=== PATIENT | female | born 1995 | race Caucasian/White ===

== ENCOUNTER 2021-02-23 09:48 | Emergency (ER) | payer OTHER ==
[2021-02-23 10:09] VITALS: RESP 18
[2021-02-23] MEDS ORDERED: IBUPROFEN 600 MG TAB PO STA (13:35)
[2021-02-23] MEDS ORDERED: CIPROFLOXACIN-DEXAMETH 0.3-0.1% DROPS 7.5 ML BTL RIGHT EAR STA (13:35)
--- NOTE | 2021-02-23 13:49 | ED ---
ENT HPI - General Chief complaint: ENT Stated complaint: Ear pain Time Seen by Provider: 02/23/21 13:21 Source: patient, family, RN notes reviewed Mode of arrival: ambulatory Limitations: no limitations - History of Present Illness Initial comments: 45-year-old female presents emergency Department chief complaint of ear pain. Patient states his been bothersome for 1 week. Patient states her small drainage. Patient with a low-grade temp, ear pain no cough or cold like symptoms no other complaints. - Related Data Previous Rx's Medication Instructions Recorded Amoxicillin/Potassium Clav 1 tab PO Q12HR #20 tab 02/23/21 [Augmentin 875-125 Tablet] Allergies Allergy/AdvReac Type Severity Reaction Status Date / Time lidocaine Allergy Dyspnea Verified 02/23/21 10:09 Review of Systems ROS Statement: Those systems with pertinent positive or pertinent negative responses have been documented in the HPI. ROS Other: All systems not noted in ROS Statement are negative. Past Medical History Past Medical History: No Reported History History of Any Multi-Drug Resistant Organisms: None Reported Past Surgical History: Section Past Psychological History: No Psychological Hx Reported Smoking Status: Current every day smoker Past Alcohol Use History: None Reported Past Drug Use History: None Reported General Exam Limitations: no limitations General appearance: alert, in no apparent distress Head exam: Present: atraumatic, normocephalic, normal inspection Eye exam: Present: normal appearance, PERRL, EOMI. Absent: scleral icterus, conjunctival injection, periorbital swelling ENT exam: Present: normal oropharynx, mucous membranes moist. Absent: normal ex am, TM's normal bilaterally, normal external ear exam (Swollen with exudates right) Neck exam: Present: normal inspection. Absent: tenderness, meningismus, lymphadenopathy Respiratory exam: Present: normal lung sounds bilaterally. Absent: respiratory distress, wheezes, rales, rhonchi, stridor Cardiovascular Exam: Present: regular rate, normal rhythm, normal heart sounds. Absent: systolic murmur, diastolic murmur, rubs, gallop, clicks Course Vital Signs 02/23/21 10:06 Temperature 99.4 F Pulse Rate 115 H Respiratory 18 Rate Blood Pressure 129/81 O2 Sat by Pulse 97 Oximetry Medical Decision Making - Medical Decision Making Patient has otitis externa cannot visualize TM. Patient started on eardrops, oral and Imitrex return parameters were discussed. Disposition Clinical Impression: Otitis externa Disposition: HOME SELF-CARE Condition: Stable Instructions (If sedation given, give patient instructions): Earache (ED) Additional Instructions: Ciprodex eardrops 4 drops twice daily for 7 days Please return to the Emergency Department if symptoms worsen or any other concerns. Prescriptions: Amoxicillin/Potassium Clav [Augmentin 875-125 Tablet] 1 tab PO Q12HR #20 tab Is patient prescribed a controlled substance at d/c from ED?: No Referrals: Nonstaff,Physician [Primary Care Provider] - 1-2 days Time of Disposition: 13:51
[2021-02-23 14:39] VITALS: BP 122/76; PULSE 112; TEMP 99.2
== END 2021-02-23 14:38 | disposition home or self-care (01) ==
LOC: EC 09:48
DX: H60.91 Unspecified otitis externa, right ear (principal); F17.200 Nicotine dependence, unspecified, uncomplicated
CPT/HCPCS: 99283

== ENCOUNTER 2021-04-22 22:21 | Emergency (ER) | payer OTHER ==
--- NOTE | 2021-04-22 22:59 | ED ---
Chest Pain HPI - General Chief Complaint: Chest Pain Stated Complaint: Chest Pain,Fever Time Seen by Provider: 04/22/21 22:36 Source: patient Mode of arrival: ambulatory Limitations: no limitations - History of Present Illness Initial Comments: 's patient is 25-year-old woman, approximately 10 weeks , who presents to be evaluated for constellation of symptoms that includes chills, lightheadedness, fever, mild cough, and pounding chest. She states she was in her usual state of health until proximally 4 PM when she noticed she was feeling chilled and then became lightheaded followed by the other symptoms. She checked her primary care was 100.9 so she felt she should be evaluated here. Complaint: other Onset/Timin -: hour(s) Onset: during rest Pain Location: substernal Pain Radiation: none Severity: mild Quality: other (Pounding) Consistency: now resolved Improves With: nothing Worsens With: nothing Other Symptoms: fever Treatments Prior to Arrival: none - Related Data Home Medications Medication Instructions Recorded Confirmed Pnv,Calcium 72/Iron/Folic Acid 1 tab PO DAILY 04/22/21 04/22/21 [ Plus Tablet] Allergies Allergy/AdvReac Type Severity Reaction Status Date / Time lidocaine Allergy Dyspnea Verified 04/22/21 23:03 Review of Systems ROS Statement: Those systems with pertinent positive or pertinent negative responses have been documented in the HPI. ROS Other: All systems not noted in ROS Statement are negative. Constitutional: Reports: fever, chills, weakness Respiratory: Reports: cough. Denies: wheezes, hemoptysis Cardiovascular: Reports: palpitations. Denies: orthopnea, edema, syncope Gastrointestinal: Denies: abdominal pain, vomiting, diarrhea Genitourinary: Denies: dysuria, hematuria Musculoskeletal: Denies: back pain Skin: Denies: rash Neurological: Denies: headache, weakness, numbness EKG Findings - EKG Results: EKG: interpreted by ERMSergei, sinus rhythm EKG shows: tachycardia (Rate 1:30 bpm) - Blocks, [place], Hypertrophy, ST Abn: AV and intraventricular conduction: right bundle branch block (fixed/intermittent, complete/incomplete) (Incomplete) Past Medical History Past Medical History: No Reported History Additional Past Medical History / Comment(s): Pre Clampsia. History of Any Multi-Drug Resistant Organisms: None Reported Past Surgical History: Section Past Psychological History: No Psychological Hx Reported Smoking Status: Current every day smoker Past Alcohol Use History: None Reported Past Drug Use History: None Reported General Exam Limitations: no limitations General appearance: alert, in no apparent distress Head exam: Present: atraumatic, normocephalic Eye exam: Present: normal appearance. Absent: scleral icterus, conjunctival injection ENT exam: Present: normal oropharynx Neck exam: Present: normal inspection Respiratory exam: Present: normal lung sounds bilaterally. Absent: respiratory distress, wheezes, rales, rhonchi, stridor Cardiovascular Exam: Present: normal rhythm, tachycardia, normal heart sounds. Absent: systolic murmur, diastolic murmur, rubs, gallop GI/Abdominal exam: Present: soft. Absent: distended, tenderness, guarding, rebound, rigid, mass Extremities exam: Present: normal inspection, normal capillary refill. Absent: pedal edema, calf tenderness Back exam: Present: normal inspection. Absent: CVA tenderness (R), CVA tenderness (L) Neurological exam: Present: alert Skin exam: Present: warm, dry, intact, normal color. 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 Discussed the risks, benefits and indications for antibody therapy and patient elects to receive this Disposition Clinical Impression: COVID-19 Disposition: HOME SELF-CARE Condition: Good Instructions (If sedation given, give patient instructions): Coronavirus Disease 2019 (COVID-19) Is patient prescribed a controlled substance at d/c from ED?: No Referrals: None,Stated [Primary Care Provider] - 1-2 days
[2021-04-22] MEDS ORDERED: ACETAMINOPHEN TAB 325 MG TAB PO STA (23:18)
[2021-04-23] MEDS ORDERED: SOTROVIMAB (EUA) 500 MG in SODIUM CHLORIDE 0.9% 100 ML IVPB ONE (00:15)
[2021-04-23] MEDS ORDERED: SODIUM CHLORIDE 0.9% 50 ML IVPB ONE (00:15)
[2021-04-23 02:08] VITALS: BP 137/74; PULSE 100; RESP 16; TEMP 99.3
== END 2021-04-23 02:07 | disposition home or self-care (01) ==
LOC: EC 22:21
DX: O98.511 Other viral diseases complicating pregnancy, first trimester (principal); U07.1 COVID-19; Z3A.10 10 weeks gestation of pregnancy; F17.200 Nicotine dependence, unspecified, uncomplicated
CPT/HCPCS: 99285; 93005; 87635; Q0247

== ENCOUNTER 2021-05-11 23:26 | Emergency (ER) | payer OTHER ==
[2021-05-11 23:31] VITALS: TEMP 98.1
[2021-05-12 00:13] LABS: Basophils # (A) 0.1 k/uL (0-0.2); Basophils % (A) 0 %; Eosinophils # (A) 0.2 k/uL (0-0.7); Eosinophils % (A) 1 %; HCT 41.4 % (34.0-46.0); HGB 13.4 gm/dL (11.4-16.0); Lymphocytes # (A) 2.5 k/uL (1.0-4.8); Lymphocytes % (A) 22 %; MCH 28.7 pg (25.0-35.0); MCHC 32.4 g/dL (31.0-37.0); MCV 88.5 fL (80.0-100.0); Mean Platelet Volume 8.3; Monocytes # (A) 0.5 k/uL (0-1.0); Monocytes % (A) 4 %; Neutrophils # (A) 8.2 k/uL (1.3-7.7); Neutrophils % (A) 71 %; Platelet Count 243 k/uL (150-450); RBC 4.68 m/uL (3.80-5.40); RDW 13.3 % (11.5-15.5); WBC 11.7 k/uL (3.8-10.6)
[2021-05-12 00:19] LABS: ALT 34 U/L (4-34); AST 29 U/L (14-36); African American GFR (CKD) >90 (>60 ml/min/1.73 sqM); Albumin 4.7 g/dL (3.5-5.0); Alkaline Phosphatase 78 U/L (38-126); Anion Gap 12 mmol/L; Blood Urea Nitrogen 4 mg/dL (7-17); Calcium 9.9 mg/dL (8.4-10.2); Carbon Dioxide 23 mmol/L (22-30); Chloride 103 mmol/L (98-107); Glucose 115 mg/dL (74-99); Non-African American GFR(CKD) >90 (>60 ml/min/1.73 sqM); Potassium 3.2 mmol/L (3.5-5.1); Sodium 138 mmol/L (137-145); Total Bilirubin 0.6 mg/dL (0.2-1.3); Total Protein 7.9 g/dL (6.3-8.2)
--- NOTE | 2021-05-12 01:40 | US ---
EXAMINATION TYPE: Transabdominal DATE OF EXAM: 05/12/2021 1:11 AM COMPARISON: NONE CLINICAL HISTORY: vaginal bleeding. Bleeding. Hx 1 C section. . EXAM PERFORMED: Transabdominal (TA). Pt upset and refusing transvaginal exam. Pt aware that TA US wa s limited for measurements and the TV exam will be clearest evaluation to confirm findings. Pt refusi ng TV exam and was made aware that findings will be in radiologist report, tech unable to give result s. EXAM MEASUREMENTS: GESTATIONAL AGE / DATING Physician Established: Unknown. Dates by LMP: Unknown. Dates by First Scan: This is first scan. Dates by Current Scan for: (8 weeks/6 days) EDC: 12/16/2021 by CRL. HR measurement limited. see below. MATERNAL ANATOMY Uterus: 10.8 x 8.5 x 7.2 cm. Appears retroflexed. Right Ovary: 3.2 x 1.8 x 1.8 cm. Left Ovary: 2.8 x 2.0 x 1.8 cm. Post CDS / Adnexa: Appear wnl. Presence of free fluid: None seen. Presence of corpus luteal cyst: Not definitely seen. Presence of subchorionic bleed: Possible- hypoechoic area seen adjacent to the gestational sac: 1.3 x 1.4 x 0.4 cm. GESTATION / SURVEY CRL: 2.17 cm. (8 weeks/6 days) MSD: 3.73 cm. (9 weeks/0 days) Yolk Sac (normal less than 6mm): Not seen. Heart Rate: 100 bpm. Unable to re measure HR a second time- too much movement. Bladder not fully dist ended. Pt refusing TV. Rhythm: ?Slightly low. Limited. IUP: pole seen, HR evaluation was limited. Date of LMP: Unknown. Beta HcG (if available): 1,090.5 mIU/mL IMPRESSION: The ultrasound gestational age is 8 weeks and 6 days. No definite complicating process.
[2021-05-12 02:54] LABS: Appearance,Urine Cloudy (Clear); Bacteria,Urine Occasional /hpf; Bilirubin,Urine Negative (Negative); Blood,Urine Large (Negative); Color,Urine Light Red; Glucose,Urine (UA) Negative (Negative); Hyaline Casts,Urine 8 /lpf (0-2); Ketones,Urine Negative (Negative); Leukocyte Esterase,Urine Moderate (Negative); Mucus,Urine Moderate /hpf; Nitrite,Urine Negative (Negative); PH, Urine 5.5 (5.0-8.0); Protein,Urine 1+ (Negative); RBC,Urine >182 /hpf (0-5); Specific Gravity,Urine 1.018 (1.001-1.035); Squamous Epithelial Cell,Urine 6 /hpf (0-4); Urobilinogen,Urine <2.0 mg/dL (<2.0); WBC,Urine 13 /hpf (0-5)
--- NOTE | 2021-05-12 03:02 | ED ---
General Adult HPI - General Source: patient, RN notes reviewed Mode of arrival: ambulatory Limitations: no limitations <Leonard Stein - Last Filed: 05/12/21 03:02> <Ryan Stapleton - Last Filed: 05/12/21 03:53> - General Chief complaint: Vaginal Bleeding Stated complaint: 13 weeks , possible miscarriage Time Seen by Provider: 05/12/21 02:46 - History of Present Illness Initial comments: 25-year-old female presents to the emergency room for a chief complaint of vaginal bleeding. Patient is a female currently approximately 13 weeks by LMP. Patient had some slight bleeding yesterday. This evening she tripped and fell around 5:30 PM. Around 10:30 PM she started to have some worsening bleeding. Patient states she passed a couple clots. States the bleeding has started to improve at this point. She denies any abdominal pain.Patient has no other complaints at this time including shortness of breath, chest pain, abdominal pain, nausea or vomiting, headache, or visual changes. (Leonard Stein) - Related Data Home Medications Medication Instructions Recorded Confirmed Pnv,Calcium 72/Iron/Folic Acid 1 tab PO DAILY 04/22/21 04/22/21 [ Plus Tablet] Previous Rx's Medication Instructions Recorded Amoxicillin 500 mg PO Q8H #21 capsule 05/12/21 Allergies Allergy/AdvReac Type Severity Reaction Status Date / Time lidocaine Allergy Dyspnea Verified 05/11/21 23:28 nickel Allergy Unknown Verified 05/11/21 23:29 Review of Systems ROS Other: All systems not noted in ROS Statement are negative. <Leonard Stein - Last Filed: 05/12/21 03:02> ROS Other: All systems not noted in ROS Statement are negative. <Ryan Stapleton - Last Filed: 05/12/21 03:53> ROS Statement: Those systems with pertinent positive or pertinent negative responses have been documented in the HPI. Past Medical History Past Medical History: No Reported History Additional Past Medical History / Comment(s): Pre Clampsia. History of Any Multi-Drug Resistant Organisms: None Reported Past Surgical History: Section Past Psychological History: No Psychological Hx Reported Smoking Status: Current every day smoker Past Alcohol Use History: None Reported Past Drug Use History: None Reported <Leonard Stein - Last Filed: 05/12/21 03:02> General Exam Limitations: no limitations General appearance: alert, in no apparent distress Head exam: Present: atraumatic Eye exam: Present: normal appearance, PERRL, EOMI. Absent: scleral icterus, conjunctival injection ENT exam: Present: normal exam, mucous membranes moist Neck exam: Present: normal inspection, full ROM. Absent: tenderness Respiratory exam: Present: normal lung sounds bilaterally. Absent: respiratory distress, wheezes Cardiovascular Exam: Present: regular rate, normal rhythm, normal heart sounds GI/Abdominal exam: Present: soft, normal bowel sounds. Absent: distended, tenderness External exam: Present: other (Patient refused pelvic exam as well as transvaginal ultrasound.) Neurological exam: Present: alert <Leonard Stein - Last Filed: 05/12/21 03:02> Course Vital Signs 05/11/21 05/12/21 23:29 02:00 Temperature 98.1 F Pulse Rate 128 H 110 H Respiratory 20 18 Rate Blood Pressure 128/85 O2 Sat by Pulse 98 100 Oximetry Medical Decision Making - Lab Data Result diagrams: 05/11/21 23:51 05/11/21 23:51 <Leonard Stein - Last Filed: 05/12/21 03:02> - Lab Data Result diagrams: 05/11/21 23:51 05/11/21 23:51 <Ryan Stapleton - Last Filed: 05/12/21 03:53> - Medical Decision Making Patient presents initially tachycardic but is very anxious. Likely secondary to anxiety. CBC CMP unremarkable. HCG is 1000. ultrasound shows a ge stational age of 8 weeks 6 days without completing process seen. Heart rate about 100 bpm but view of heart rate was very limited secondary to refusal for transvaginal ultrasound. pole was seen as well. Patient may have a subchorionic hemorrhage noted. At this time patient can be discharged home to follow up with [facility]. States she does have an appointment coming up actually later today. Patient will return here for any worsening symptoms. (Leonard Stein) - Lab Data Lab Results 05/11/21 05/11/21 05/11/21 Range/Units 23:51 23:51 23:51 WBC 11.7 H (3.8-10.6) k/uL RBC 4.68 (3.80-5.40) m/uL Hgb 13.4 (11.4-16.0) gm/dL Hct 41.4 (34.0-46.0) % MCV 88.5 (80.0-100.0) fL MCH 28.7 (25.0-35.0) pg MCHC 32.4 (31.0-37.0) g/dL RDW 13.3 (11.5-15.5) % Plt Count 243 (150-450) k/uL MPV 8.3 Neutrophils % 71 % Lymphocytes % 22 % Monocytes % 4 % Eosinophils % 1 % Basophils % 0 % Neutrophils # 8.2 H (1.3-7.7) k/uL Lymphocytes # 2.5 (1.0-4.8) k/uL Monocytes # 0.5 (0-1.0) k/uL Eosinophils # 0.2 (0-0.7) k/uL Basophils # 0.1 (0-0.2) k/uL Sodium (137-145) mmol/L Potassium (3.5-5.1) mmol/L Chloride (98-107) mmol/L Carbon Dioxide (22-30) mmol/L Anion Gap mmol/L BUN (7-17) mg/dL Creatinine (0.52-1.04) mg/dL Est GFR (CKD-EPI)AfAm (>60 ml/min/1.73 sqM) Est GFR (CKD-EPI)NonAf (>60 ml/min/1.73 sqM) Glucose (74-99) mg/dL Calcium (8.4-10.2) mg/dL Total Bilirubin (0.2-1.3) mg/dL AST (14-36) U/L ALT (4-34) U/L Alkaline Phosphatase (38-126) U/L Total Protein (6.3-8.2) g/dL Albumin (3.5-5.0) g/dL HCG, Quant 1090.5 mIU/mL Urine Color Urine Appearance (Clear) Urine pH (5.0-8.0) Ur Specific [place] (1.001-1.035) Urine Protein (Negative) Urine Glucose (UA) (Negative) Urine Ketones (Negative) Urine Blood (Negative) Urine Nitrite (Negative) Urine Bilirubin (Negative) Urine Urobilinogen (<2.0) mg/dL Ur Leukocyte Esterase (Negative) Urine RBC (0-5) /hpf Urine WBC (0-5) /hpf Ur Squamous Epith Cells (0-4) /hpf Urine Bacteria (None) /hpf Hyaline Casts (0-2) /lpf Urine Mucus (None) /hpf Blood Type O Positive Blood Type Recheck No Previous Record Bld Type Recheck Status CABO Indicated 05/11/21 05/12/21 Range/Units 23:51 02:13 WBC (3.8-10.6) k/uL RBC (3.80-5.40) m/uL Hgb (11.4-16.0) gm/dL Hct (34.0-46.0) % MCV (80.0-100.0) fL MCH (25.0-35.0) pg MCHC (31.0-37.0) g/dL RDW (11.5-15.5) % Plt Count (150-450) k/uL MPV Neutrophils % % Lymphocytes % % Monocytes % % Eosinophils % % Basophils % % Neutrophils # (1.3-7.7) k/uL Lymphocytes # (1.0-4.8) k/uL Monocytes # (0-1.0) k/uL Eosinophils # (0-0.7) k/uL Basophils # (0-0.2) k/uL Sodium 138 (137-145) mmol/L Potassium 3.2 L (3.5-5.1) mmol/L Chloride 103 (98-107) mmol/L Carbon Dioxide 23 (22-30) mmol/L Anion Gap 12 mmol/L BUN 4 L (7-17) mg/dL Creatinine 0.64 (0.52-1.04) mg/dL Est GFR (CKD-EPI)AfAm >90 (>60 ml/min/1.73 sqM) Est GFR (CKD-EPI)NonAf >90 (>60 ml/min/1.73 sqM) Glucose 115 H (74-99) mg/dL Calcium 9.9 (8.4-10.2) mg/dL Total Bilirubin 0.6 (0.2-1.3) mg/dL AST 29 (14-36) U/L ALT 34 (4-34) U/L Alkaline Phosphatase 78 (38-126) U/L Total Protein 7.9 (6.3-8.2) g/dL Albumin 4.7 (3.5-5.0) g/dL HCG, Quant mIU/mL Urine Color Light Red Urine Appearance Cloudy H (Clear) Urine pH 5.5 (5.0-8.0) Ur Specific [place] 1.018 (1.001-1.035) Urine Protein 1+ H (Negative) Urine Glucose (UA) Negative (Negative) Urine Ketones Negative (Negative) Urine Blood Large H (Negative) Urine Nitrite Negative (Negative) Urine Bilirubin Negative (Negative) Urine Urobilinogen <2.0 (<2.0) mg/dL Ur Leukocyte Esterase Moderate H (Negative) Urine RBC >182 H (0-5) /hpf Urine WBC 13 H (0-5) /hpf Ur Squamous Epith Cells 6 H (0-4) /hpf Urine Bacteria Occasional H (None) /hpf Hyaline Casts 8 H (0-2) /lpf Urine Mucus Moderate H (None) /hpf Blood Type Blood Type Recheck Bld Type Recheck Status Disposition Is patient prescribed a controlled substance at d/c from ED?: No Time of Disposition: 03:01 <Leonard Stein - Last Filed: 05/12/21 03:02> <Ryan Stapleton - Last Filed: 05/12/21 03:53> Clinical Impression: Threatened miscarriage Disposition: HOME SELF-CARE Condition: Good Instructions (If sedation given, give patient instructions): Threatened Miscarriage (ED) Additional Instructions: Please follow up with your [facility] [employer]. If you have worsening symptoms such as worsening vaginal bleeding return to the emergency room. Prescriptions: Amoxicillin 500 mg PO Q8H #21 capsule Referrals: Shannan Goodman DO [Doctor of Osteopathic Medicine] - 1-2 days
[2021-05-12 03:30] VITALS: RESP 18
[2021-05-12] MEDS ORDERED: AMOXICILLIN 500 MG CAP PO ONE (04:00)
[2021-05-12 04:08] VITALS: BP 123/85; PULSE 101
== END 2021-05-12 04:07 | disposition home or self-care (01) ==
LOC: EC 23:26
DX: O20.0 Threatened abortion (principal); O99.331 Smoking (tobacco) complicating pregnancy, first trimester; F17.200 Nicotine dependence, unspecified, uncomplicated; Z3A.13 13 weeks gestation of pregnancy
CPT/HCPCS: 36415; 76801; 80053; 81001; 84702; 85025; 86900; 86901; 87086; 99284

== ENCOUNTER 2021-05-13 22:55 | Emergency (ER) | payer OTHER ==
[2021-05-13 23:00] VITALS: TEMP 98.3
[2021-05-13] MEDS ORDERED: SODIUM CHLORIDE 0.9% 1,000 ML IV STA (23:15)
[2021-05-13 23:42] LABS: Basophils % (A) 0 %; Eosinophils # (A) 0.2 k/uL (0-0.7); Eosinophils % (A) 2 %; HCT 43.8 % (34.0-46.0); HGB 14.2 gm/dL (11.4-16.0); Lymphocytes # (A) 2.3 k/uL (1.0-4.8); Lymphocytes % (A) 24 %; MCHC 32.6 g/dL (31.0-37.0); MCV 89.1 fL (80.0-100.0); Mean Platelet Volume 8.1; Monocytes # (A) 0.4 k/uL (0-1.0); Monocytes % (A) 5 %; Neutrophils # (A) 6.5 k/uL (1.3-7.7); Neutrophils % (A) 67 %; Platelet Count 273 k/uL (150-450); RBC 4.91 m/uL (3.80-5.40); RDW 13.6 % (11.5-15.5); WBC 9.7 k/uL (3.8-10.6)
[2021-05-13 23:53] LABS: ALT 30 U/L (4-34); AST 24 U/L (14-36); African American GFR (CKD) >90 (>60 ml/min/1.73 sqM); Albumin 4.6 g/dL (3.5-5.0); Alkaline Phosphatase 86 U/L (38-126); Anion Gap 12 mmol/L; Blood Urea Nitrogen 5 mg/dL (7-17); Carbon Dioxide 21 mmol/L (22-30); Chloride 106 mmol/L (98-107); Glucose 117 mg/dL (74-99); Non-African American GFR(CKD) >90 (>60 ml/min/1.73 sqM); Potassium 3.7 mmol/L (3.5-5.1); Sodium 139 mmol/L (137-145); Total Bilirubin 0.4 mg/dL (0.2-1.3); Total Protein 7.9 g/dL (6.3-8.2)
--- NOTE | 2021-05-14 | ED ---
Female Urogenital HPI - General Chief complaint: Vaginal Bleeding Stated complaint: 9 weeks , abd pain Time Seen by Provider: 05/13/21 23:06 Source: patient, RN notes reviewed Mode of arrival: wheelchair Limitations: no limitations - History of Present Illness Initial comments: This is a pleasant 25-year-old female who was just over 9 weeks . Patient presents to emergency department complaining of vaginal bleeding. Patient was seen here yesterday for similar symptomology. Patient states the bleeding was much worse today. Patient is having some cramping. She is describing meeting, more than normal menstrual period with no evidence of tissue. No headache, no fever or chills, no changes in vision or hearing, no sore throat or difficulty with speech, no neck pain, no chest pain or shortness of breath, no abdominal pain, no nausea or vomiting, no changes in urination or bowel movements, no numbness or tingling, no extremity pain, no skin rashes or lesions. MD Complaint: vaginal bleeding - Related Data Home Medications Medication Instructions Recorded Confirmed Pnv,Calcium 72/Iron/Folic Acid 1 tab PO DAILY 04/22/21 04/22/21 [ Plus Tablet] Previous Rx's Medication Instructions Recorded Amoxicillin 500 mg PO Q8H #21 capsule 05/12/21 HYDROcodone/APAP 5-325MG [[place] 1 tab PO Q6HR PRN 3 Days #12 tab 05/14/21 5-325] Allergies Allergy/AdvReac Type Severity Reaction Status Date / Time lidocaine Allergy Dyspnea Verified 05/13/21 22:57 nickel Allergy Unknown Verified 05/13/21 22:57 Review of Systems ROS Statement: Those systems with pertinent positive or pertinent negative responses have been documented in the HPI. ROS Other: All systems not noted in ROS Statement are negative. Past Medical History Past Medical History: No Reported History Additional Past Medical History / Comment(s): Pre Clampsia. History of Any Multi-Drug Resistant Organisms: None Reported Past Surgical History: Section Past Psychological History: No Psychological Hx Reported Smoking Status: Current every day smoker Past Alcohol Use History: None Reported Past Drug Use History: None Reported General Exam - General Exam Comments Initial Comments: Patient in mild distress. Does not appear to be ill or toxic. Note that the patient is tachycardic and appears to be very anxious Limitations: no limitations General appearance: alert, in no apparent distress Head exam: Present: atraumatic, normocephalic, normal inspection Eye exam: Present: normal appearance, PERRL, EOMI. Absent: scleral icterus, con junctival injection, periorbital swelling ENT exam: Present: normal exam, mucous membranes moist Neck exam: Present: normal inspection. Absent: tenderness, meningismus, lymphadenopathy Respiratory exam: Present: normal lung sounds bilaterally. Absent: respiratory distress, wheezes, rales, rhonchi, stridor Cardiovascular Exam: Present: normal rhythm, tachycardia, normal heart sounds. Absent: systolic murmur, diastolic murmur, rubs, gallop, clicks GI/Abdominal exam: Present: soft, normal bowel sounds. Absent: distended, tenderness, guarding, rebound, rigid Extremities exam: Present: normal inspection, full ROM, normal capillary refill. Absent: tenderness, pedal edema, joint swelling, calf tenderness Back exam: Present: normal inspection Neurological exam: Present: alert, oriented X3, CN II-XII intact Psychiatric exam: Present: normal affect, normal mood Skin exam: Present: warm, dry, intact, normal color. Absent: rash Course Vital Signs 05/13/21 05/14/21 05/14/21 22:57 00:34 02:35 Temperature 98.3 F Pulse Rate 122 H 98 Pulse Rate [ 112 H Left Prone Manager Media Relations ] Pulse Rate [ 115 H Left Sitting Manager [employer] Relations ] Respiratory 20 16 13 Rate Blood Pressure 136/80 142/75 Blood Pressure 136/95 [Left Arm Sitting] Blood Pressure 135/88 [Left Arm Supine] O2 Sat by Pulse 98 100 100 Oximetry - Reevaluation(s) Reevaluation #1: 05/14/21 00:33 Medical record is reviewed Symptoms are improved here in the emergency department Patient is informed of results and questions answered Patient in no distress Serum beta hCG has dropped from 1098.5 to 459.3. Reevaluation #2: 05/14/21 00:43 Medical record is reviewed Symptoms are improved here in the emergency department Patient is informed of results and questions answered Patient in no distress Patient understandably upset. Patient's heart rate is 96 at the time I am assessing her. Patient is tearful. Reevaluation #3: 05/14/21 01:16 Medical record is reviewed Symptoms are improved here in the emergency department Patient is informed of results and questions answered Patient in no distress Patient remains tachycardic. Blood pressure was stable on orthostatics. Patient still has significant bleeding. Case was discussed in detail with ED attending physician who suggested [facility]A Medical Decision Making - Medical Decision Making As noted, patient has a significant drop in her beta hCG with tissue consistent with products of conception. Specimen sent for analysis. Note that this patient refused the pelvic examination. Patient will need to follow-up with the water fitness instructor. Specimen was sent for analysis. Patient was seen with after stable at the time of discharge. Pelvic rest advised, quantitative beta hCG will need to be followed. No strenuous activity. Patient reevaluated prior to discharge and is improved. Patient's hemodynamic stable. 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 Patient will be given a prescription for outpatient laboratory testing for a serum beta-HCG. The case was discussed in detail with ED attending physician. Presentation, findings, treatment plan discussed in detail. Patient was told to return to the ER for any signs or symptoms worsen. Told to return immediately if any other problems arise. All questions answered. Treatment plan discussed. Patient in agreement - Lab Data Result diagrams: 05/13/21 23:31 05/13/21 23:31 Lab Results 05/13/21 05/13/21 Range/Units 23:31 23:31 WBC 9.7 (3.8-10.6) k/uL RBC 4.91 (3.80-5.40) m/uL Hgb 14.2 (11.4-16.0) gm/dL Hct 43.8 (34.0-46.0) % MCV 89.1 (80.0-100.0) fL MCH 29.0 (25.0-35.0) pg MCHC 32.6 (31.0-37.0) g/dL RDW 13.6 (11.5-15.5) % Plt Count 273 (150-450) k/uL MPV 8.1 Neutrophils % 67 % Lymphocytes % 24 % Monocytes % 5 % Eosinophils % 2 % Basophils % 0 % Neutrophils # 6.5 (1.3-7.7) k/uL Lymphocytes # 2.3 (1.0-4.8) k/uL Monocytes # 0.4 (0-1.0) k/uL Eosinophils # 0.2 (0-0.7) k/uL Basophils # 0.0 (0-0.2) k/uL Sodium 139 (137-145) mmol/L Potassium 3.7 (3.5-5.1) mmol/L Chloride 106 (98-107) mmol/L Carbon Dioxide 21 L (22-30) mmol/L Anion Gap 12 mmol/L BUN 5 L (7-17) mg/dL Creatinine 0.63 (0.52-1.04) mg/dL Est GFR (CKD-EPI)AfAm >90 (>60 ml/min/1.73 sqM) Est GFR (CKD-EPI)NonAf >90 (>60 ml/min/1.73 sqM) Glucose 117 H (74-99) mg/dL Calcium 10.0 (8.4-10.2) mg/dL Total Bilirubin 0.4 (0.2-1.3) mg/dL AST 24 (14-36) U/L ALT 30 (4-34) U/L Alkaline Phosphatase 86 (38-126) U/L Total Protein 7.9 (6.3-8.2) g/dL Albumin 4.6 (3.5-5.0) g/dL HCG, Quant 459.3 mIU/mL Disposition Clinical Impression: Spontaneous Disposition: HOME SELF-CARE Condition: Stable Instructions (If sedation given, give patient instructions): Miscarriage (ED) Additional Instructions: Follow-up with Dr. Goodman. Call tomorrow morning for an appointment. Return to the outpatient laboratory to have a blood prexy test on Monday. Follow-up with your regular physician as directed. Return to the ER immediately if any symptoms worsen, new symptoms arise, or any other problems develop. No strenuous activity, pelvic rest until cleared by Dr. Goodman. Prescriptions: HYDROcodone/APAP 5-325MG [[place] 5-325] 1 tab PO Q6HR PRN 3 Days #12 tab PRN Reason: Pain Is patient prescribed a controlled substance at d/c from ED?: Yes Referrals: None,Stated [Primary Care Provider] - 1-2 days Time of Disposition: 02:51
[2021-05-14 00:10] LABS: HCG,Quantitative Serum 459.3 mIU/mL
[2021-05-14] MEDS ORDERED: MORPHINE SULFATE 4 MG/ML SYRINGE IV STA (00:51)
[2021-05-14] MEDS ORDERED: ONDANSETRON 4 MG/2 ML VIAL IVP STA (00:51)
[2021-05-14] MEDS ORDERED: TRANEXAMIC ACID 1,000 MG in SODIUM CHLORIDE 0.9% 100 ML IVPB ONE (01:15)
[2021-05-14] MEDS ORDERED: LACTATED RINGERS 1,000 ML IV SCH (01:30)
[2021-05-14] MEDS ORDERED: MORPHINE SULFATE 2 MG/ML SYRINGE IV STA (02:32)
[2021-05-14 02:35] VITALS: BP 142/75; PULSE 98; RESP 13
== END 2021-05-14 03:17 | disposition home or self-care (01) ==
LOC: EC 22:55
DX: O03.9 Complete or unspecified spontaneous abortion without complication (principal); F17.200 Nicotine dependence, unspecified, uncomplicated; Z3A.09 9 weeks gestation of pregnancy
CPT/HCPCS: 36415; 80053; 84702; 85025; 96361; 96365; 96375; 96376; 99284